=== PATIENT | male | born 1955 | race Caucasian/White ===

== ENCOUNTER 2016-12-22 09:48 | Day surgery (SDC) | payer BC ==
[2016-12-16 10:06] VITALS: BMI 35.9
[~2016-12-22 09:48] MED LIST: LACTATED RINGERS 1,000 ML IV SCH; LIDOCAINE 1% 20 ML VIAL (10MG/ML) FOR IV START INTRADERMA PRN
[2016-12-22 10:17] VITALS: TEMP 97.6
[2016-12-22] MEDS ORDERED: PROPOFOL 10 MG/ML 20 ML VIAL IV ONE (10:56)
[2016-12-22] MEDS ORDERED: MIDAZOLAM 2 MG/2 ML VIAL ONE (10:56)
[2016-12-22] MEDS ORDERED: fentaNYL (PF) 50 MCG/ML 2 ML AMP ONE (10:56)
--- NOTE | 2016-12-22 11:09 | P.GSHP ---
History of Present Illness H&P Date: 12/22/16 Chief Complaint: GERD [employer] 51-year-old male referred from Dr. koehler. Patient has complaints of GERD. He presents today for EGD. He's had issues with epigastric and chest pain related to reflux. Past Medical History Past Medical History: Chest Pain / Angina, CVA/TIA, Hyperlipidemia, Hypertension , Thyroid Disorder Additional Past Medical History / Comment(s): CVA IN 2014: Right sided facial numbness. History of Any Multi-Drug Resistant Organisms: None Reported Past Surgical History: Heart Catheterization With Stent, Orthopedic Surgery, Tonsillectomy Additional Past Surgical History / Comment(s): LT Rotator cuff surgery. COLONOSCOPY. HEMORRHOIDECTOMY Past Anesthesia/Blood Transfusion Reactions: No Reported Reaction Date of Last Stent Placement:: November 2013 Past Psychological History: Depression Smoking Status: Former smoker Past Alcohol Use History: None Reported Additional Past Alcohol Use History / Comment(s): QUIT SMOKING 30 YRS AGO Past Drug Use History: None Reported - Past Family History Mother Family Medical History: Cancer Brother(s) Family Medical History: Cancer Medications and Allergies Home Medications Medication Instructions Recorded Confirmed Type Baclofen [Lioresal] 10 mg PO BID PRN 06/07/14 12/22/16 History Clopidogrel [Plavix] 75 mg PO DAILY 06/07/14 12/22/16 History Furosemide [Lasix] 20 mg PO TID 06/07/14 12/22/16 History Potassium Chloride [Klor-Con 10] 10 meq PO QID 06/07/14 12/22/16 History traMADol HCl [Ultram] 50 mg PO Q6H PRN 06/07/14 12/22/16 History Amitriptyline HCl [Elavil] 10 mg PO HS 06/10/15 12/22/16 History Metoprolol Succinate (ER) [Toprol 25 mg PO QAM 06/10/15 12/22/16 History XL] Atorvastatin Calcium [Lipitor] 20 mg PO HS 12/16/16 12/22/16 History FLUoxetine HCL [PROzac] 20 mg PO HS 12/16/16 12/22/16 History Levothyroxine Sodium [Synthroid] 75 mcg PO DAILY 12/16/16 12/22/16 History carBAMazepine [carBAMazepine ER] 100 mg PO 5XD 01/26/17 02/01/17 History Allergies Allergy/AdvReac Type Severity Reaction Status Date / Time No Known Allergies Allergy Verified 12/16/16 09:57 Surgical - Exam Vital Signs Temp Pulse Resp BP Pulse Ox 97.6 F 58 L 16 122/73 97 12/22/16 10:16 12/22/16 10:16 12/22/16 10:16 12/22/16 10:16 12/22/16 10:16 - General well developed, no distress - Eyes PERRL - ENT normal pinna - Neck no masses - Respiratory normal expansion - Cardiovascular Rhythm: regular - Abdomen Abdomen: soft, non tender Assessment and Plan Plan: GERD. We'll perform EGD.
--- NOTE | 2016-12-22 11:17 | P.OP ---
Date of Procedure: 12/22/16 Preoperative Diagnosis: GERD Postoperative Diagnosis: Mild duodenitis Mild antral gastritis No evidence of hiatal hernia Esophageal biopsy) Procedure(s) Performed: EGD Anesthesia: MAC Surgeon: Cj Omer Condition: stable Disposition: PACU Description of Procedure: The patient's placed on the endoscopy table in the lateral position. He received IV sedation. The gastroscope some placed oropharynx passed in the esophagus and into the stomach. Scope was then placed through the pylorus. The first second portion of duodenum was examined. There is mild inflammation of the duodenum. A biopsies performed. The scope was retroflexed and the remainder of the stomach appeared normal. There is no significant hiatal hernia. The distal esophagus appeared minimally inflamed and a biopsy was performed. The proximal esophagus appeared normal. Withdrawn for patient.
[2016-12-22 11:21] VITALS: RESP 18
[2016-12-22 11:48] VITALS: BP 108/67; PULSE 50
--- NOTE | 2016-12-22 16:58 | NM ---
EXAMINATION TYPE: NM hepatobiliary w CCK DATE OF EXAM: 12/22/2016 4:52 PM COMPARISON: NONE HISTORY: Epigastric abdominal pain per order TECHNIQUE: After the intravenous administration of 5.2 mCi Tc 99m Mebrofenin hepatobiliary scintigrap hy is performed. Immediate images post injection. FINDINGS: There is satisfactory initial accumulation of tracer by the liver. The gallbladder is visualized wit hin 20 minutes. The small bowel activity is noted within 15 minutes. At one hour CCK was administer ed, patient was injected with 2.3 mcg of Kinevac, and gallbladder ejection fraction is calculated at 19 %, diminished from the normal range. Therefore there is no scintigraphic evidence of cystic or co mmon bile duct obstruction to suggest acute cholecystitis. Overall diminished ejection fraction is co nsistent with chronic cholecystitis or gallbladder dyskinesia. IMPRESSION: Ejection fraction is 19%, diminished from the normal range, scintigraphic findings are co nsistent with underlying gallbladder dyskinesia.
== END 2016-12-22 12:11 | disposition home or self-care (01) ==
LOC: ORWHC2ENDO 09:48
PROVIDERS: ATTEND Surgery
DX: K21.0 Gastro-esophageal reflux disease with esophagitis (principal); K29.50 Unspecified chronic gastritis without bleeding; K29.80 Duodenitis without bleeding; I25.10 Atherosclerotic heart disease of native coronary artery without angina pectoris; E07.9 Disorder of thyroid, unspecified; E78.5 Hyperlipidemia, unspecified; I10 Essential (primary) hypertension; F32.9 Major depressive disorder, single episode, unspecified; Z95.5 Presence of coronary angioplasty implant and graft; Z79.02 Long term (current) use of antithrombotics/antiplatelets; Z79.899 Other long term (current) drug therapy; Z87.891 Personal history of nicotine dependence; I69.998 Other sequelae following unspecified cerebrovascular disease
CPT/HCPCS: 88305; 88342; 78227; 43239; A9537; J2250; J2805; J3010; J2704; 99153

== ENCOUNTER 2017-01-12 12:39 | Day surgery (SDC) | payer BC ==
[2017-01-10 15:25] VITALS: BMI 35.9
[~2017-01-12 12:39] MED LIST changes: +DEXAMETHASONE SOD PHOSPHATE 10 MG/ML 1 ML VIAL IV ONE; +HEPARIN SODIUM,PORCINE 5,000 UNIT/ML 1 ML VIAL SQ ONE; -LIDOCAINE 1% 20 ML VIAL (10MG/ML) FOR IV START INTRADERMA PRN; +MIDAZOLAM 2 MG/2 ML VIAL IV PRN; +ONDANSETRON 4 MG/2 ML VIAL IVP ONE; +ceFAZolin 2 GM in SODIUM CHLORIDE 0.9% 100 ML IVPB ONE
[2017-01-12 13:40] VITALS: RESP 16
--- NOTE | 2017-01-12 14:02 | P.GSHP ---
History of Present Illness H&P Date: 01/12/17 Chief Complaint: Right upper quadrant pain This is a 61-year-old male referred from Dr. Meka koehler. Patient rents today for laparoscopic cholestatic. His recent HIDA scan showed a diminished ejection fraction consistent with biliary dyskinesia. - Constitutional Constitutional: Reports as per HPI Past Medical History Past Medical History: Chest Pain / Angina, CVA/TIA, Hyperlipidemia, Hypertension , Thyroid Disorder Additional Past Medical History / Comment(s): CVA IN 2013: Right sided numbness. History of Any Multi-Drug Resistant Organisms: None Reported Past Surgical History: Heart Catheterization With Stent, Orthopedic Surgery, Tonsillectomy Additional Past Surgical History / Comment(s): LT Rotator cuff surgery. NECK SURGERY. PYL. CYST REM. HEMORRHOIDECTOMY Past Anesthesia/Blood Transfusion Reactions: No Reported Reaction Date of Last Stent Placement:: November 2013 Past Psychological History: Depression Smoking Status: Former smoker Past Alcohol Use History: None Reported Additional Past Alcohol Use History / Comment(s): QUIT SMOKING 30 YRS AGO Past Drug Use History: None Reported - Past Family History Mother Family Medical History: Cancer Brother(s) Family Medical History: Cancer Medications and Allergies Home Medications Medication Instructions Recorded Confirmed Type Baclofen [Lioresal] 10 mg PO BID PRN 06/07/14 01/12/17 History Clopidogrel [Plavix] 75 mg PO DAILY 06/07/14 01/12/17 History Furosemide [Lasix] 40 mg PO TID 06/07/14 01/12/17 History Potassium Chloride [Klor-Con 10] 10 meq PO QID 06/07/14 01/12/17 History traMADol HCl [Ultram] 50 mg PO Q6H PRN 06/07/14 01/12/17 History Metoprolol Succinate (ER) [Toprol 25 mg PO HS 06/10/15 01/12/17 History XL] Atorvastatin Calcium [Lipitor] 20 mg PO HS 12/16/16 01/12/17 History FLUoxetine HCL [PROzac] 20 mg PO HS 12/16/16 01/12/17 History Levothyroxine Sodium [Synthroid] 75 mcg PO DAILY 12/16/16 01/12/17 History carBAMazepine [carBAMazepine ER] 100 mg PO 5XD 12/16/16 01/12/17 History Allergies Allergy/AdvReac Type Severity Reaction Status Date / Time No Known Allergies Allergy Verified 01/12/17 13:35 Surgical - Exam Vital Signs Temp Pulse Resp BP Pulse Ox 98.0 F 71 16 139/73 97 01/12/17 13:39 01/12/17 13:39 01/12/17 13:39 01/12/17 13:39 01/12/17 13:39 - General well developed, no distress - Eyes PERRL - ENT normal pinna - Neck no masses - Respiratory normal expansion - Cardiovascular Rhythm: regular - Abdomen Abdomen: soft, non tender Assessment and Plan Plan: Biliary dyskinesia Chronic lysis We'll perform laparoscopic cholecystectomy.
[2017-01-12] MEDS ORDERED: NEOSTIGMINE 1 MG/ML 10 ML VIAL ONE (14:32)
[2017-01-12] MEDS ORDERED: GLYCOPYRROLATE 0.2 MG/ML 2 ML VIAL ONE (14:32)
[2017-01-12] MEDS ORDERED: ROCURONIUM BROMIDE 10 MG/ML 10 ML VIAL IV ONE (14:32)
[2017-01-12] MEDS ORDERED: LIDOCAINE 1% INJ 10MG/ML (20 ML MDV) ONE (14:32)
[2017-01-12] MEDS ORDERED: SUCCINYLCHOLINE CHLORIDE 100 MG/5 ML SYR IV ONE (14:32)
[2017-01-12] MEDS ORDERED: PROPOFOL 10 MG/ML 20 ML VIAL IV ONE (14:32)
[2017-01-12] MEDS ORDERED: MIDAZOLAM 2 MG/2 ML VIAL ONE (14:32)
[2017-01-12] MEDS ORDERED: fentaNYL (PF) 50 MCG/ML 2 ML AMP ONE (14:32)
[2017-01-12] MEDS ORDERED: BUPIVACAIN-EPI 0.25%-1:200,000 30 ML VIAL SQ ONE (14:46)
[2017-01-12] MEDS ORDERED: LACTATED RINGERS 1,000 ML IV ONE (15:13)
--- NOTE | 2017-01-12 15:15 | P.OP ---
Date of Procedure: 01/12/17 Preoperative Diagnosis: Cholecystitis Postoperative Diagnosis: Cholecystitis Procedure(s) Performed: Laparoscopic cholecystectomy Anesthesia: ANISA Surgeon: Cj Omer Estimated Blood Loss (ml): 5 Pathology: other (Gallbladder) Condition: stable Disposition: PACU Description of Procedure: The patient was placed on the operating table. The patient received a general endotracheal tube anesthesia. The patients abdomen was prepped and draped in the usual sterile fashion. Through an infraumbilical stab incision, the fascia of the anterior abdominal wall was grasped with a pair of Kochers and then the Veress needle was placed in the peritoneal cavity. Position of the Veress needle was confirmed with positive drop test. The abdomen was then insufflated. After adequate insufflation, the 10 mm trocar was placed in the peritoneal cavity. Following this the laparoscope was placed in the peritoneal cavity. The patient was placed in the head-up, right side up position and then a 5 mm trocar was placed in the right lateral and right subcostal position under direct visualization. A 8 mm trocar was placed in the epigastric position. The gallbladder was grasped in the fundus and infundibulum. Traction on the gallbladder was placed in the lateral and the cephalad positions. The triangle of Calot was visualized.. The cystic duct was bluntly dissected until the union of the cystic duct and common bile duct was seen. The cystic duct was then divided and sealed with the Harmonic scissors. A PDS Endoloop was then placed throughout the cystic duct stump. The cystic artery divided and sealed with the Harmonic scissors. The gallbladder was then removed from the liver bed using Harmonic scissors. The gallbladder was then extracted through the epigastric port site. Operative field was checked for any bleeding spots and Harmonic scissors was used to coagulate the liver bed. The abdomen was irrigated. The trocars were removed. The skin was closed using interrupted 3-0 Vicryl suture. Dermabond dressing were applied. The patient tolerated the procedure well.
[2017-01-12] MEDS: HYDROmorphone 1 MG/ML 1 ML SYRINGE IVP PRN ×4 (15:40→16:06)
[2017-01-12 15:47] VITALS: TEMP 97.7
[2017-01-12] MEDS ORDERED: HYDROcodone/APAP 7.5-325MG 1 EACH TAB PO ONE (16:53)
[2017-01-12 16:54] VITALS: BP 105/66; PULSE 56
== END 2017-01-12 17:24 | disposition home or self-care (01) ==
LOC: OR 12:39
PROVIDERS: ATTEND Surgery
DX: K81.1 Chronic cholecystitis (principal); I25.119 Atherosclerotic heart disease of native coronary artery with unspecified angina pectoris; I10 Essential (primary) hypertension; E78.5 Hyperlipidemia, unspecified; J45.909 Unspecified asthma, uncomplicated; F32.9 Major depressive disorder, single episode, unspecified; K21.9 Gastro-esophageal reflux disease without esophagitis; E07.9 Disorder of thyroid, unspecified; Z79.02 Long term (current) use of antithrombotics/antiplatelets; Z79.899 Other long term (current) drug therapy; Z87.891 Personal history of nicotine dependence; Z86.73 Personal history of transient ischemic attack (TIA), and cerebral infarction without residual deficits; Z95.5 Presence of coronary angioplasty implant and graft
CPT/HCPCS: 47562; 88304; J2250; J1644; J1100; J2710; J0690; J2405; J2001; J3010; J1170; J0330; J2704

== ENCOUNTER 2017-04-30 15:05 | Emergency (ER) | payer BC ==
[2017-04-30 15:18] VITALS: BP 132/70; PULSE 61; RESP 20; TEMP 99.1
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
== END 2017-04-30 16:18 | disposition home or self-care (01) ==
LOC: EC 15:05
DX: S13.9XXA Sprain of joints and ligaments of unspecified parts of neck, initial encounter (principal); E78.5 Hyperlipidemia, unspecified; I10 Essential (primary) hypertension; F32.9 Major depressive disorder, single episode, unspecified; E07.9 Disorder of thyroid, unspecified; Z87.891 Personal history of nicotine dependence; Z79.899 Other long term (current) drug therapy; Z79.02 Long term (current) use of antithrombotics/antiplatelets; Z86.73 Personal history of transient ischemic attack (TIA), and cerebral infarction without residual deficits; Z86.79 Personal history of other diseases of the circulatory system; Z95.5 Presence of coronary angioplasty implant and graft; V49.40XA Driver injured in collision with unspecified motor vehicles in traffic accident, initial encounter; Y92.410 Unspecified street and highway as the place of occurrence of the external cause
CPT/HCPCS: 99284; 72125; L0120

== ENCOUNTER 2019-01-27 08:59 | Emergency (ER) | payer BC, OTHER ==
[2019-01-27] MEDS ORDERED: SODIUM CHLORIDE 0.9% 1,000 ML IV STA (09:03)
[2019-01-27] MEDS ORDERED: SODIUM CHLORIDE 0.9% 500 ML 500 ML IV STA (09:03)
[2019-01-27 09:16] VITALS: RESP 18
[2019-01-27 09:24] LABS: Glucose,Whole Blood 114 mg/dL (75-99)
--- NOTE | 2019-01-27 09:25 | XR ---
EXAMINATION TYPE: XR chest 1V portable DATE OF EXAM: 01/27/2019 COMPARISON: 12/17/2013 HISTORY: Fall with chest pain. TECHNIQUE: Single frontal view of the chest is obtained. FINDINGS: There is no focal air space opacity, pleural effusion, or pneumothorax seen. The cardiac silhouette size is within normal limits. The osseous structures are intact. Cervical fusion device and mild multilevel degenerative changes of the thoracic spine are noted. IMPRESSION: No acute process.
--- NOTE | 2019-01-27 09:25 | XR ---
EXAMINATION TYPE: XR pelvis AP view DATE OF EXAM: 01/27/2019 CLINICAL HISTORY: Pelvic pain after fall TECHNIQUE: A single AP view of the pelvis is obtained. COMPARISON: None. FINDINGS: Surgical clips are noted within the inferior soft tissues. There is no acute fracture/dislo cation evident in the pelvis. The hip and sacroiliac joints appear symmetric with moderate arthropat hy. The overlying soft tissue appears unremarkable. IMPRESSION: There is no acute fracture or dislocation in the pelvis.
--- NOTE | 2019-01-27 09:26 | ED ---
Fall HPI - General Chief Complaint: Fall Stated Complaint: Fall Time Seen by Provider: 01/27/19 08:59 Source: patient, EMS, RN notes reviewed Mode of arrival: EMS - History of Present Illness Initial Comments: This is a 63-year-old male who states he was walking down steps when he missed a step and fell down 2 steps landing on his left hip area. He denies any head neck or back pain loss of consciousness loss of function to his upper or lower extremities he states he did almost pass out when he try to get up because he had a lot of pain in the left hip area. He was brought in by EMS. Patient is on Plavix. He was considered a priority 2 trauma. I did discuss the case with Dr. Silveira who did call back. He denies any other complaints this time MD Complaint: fall - Related Data Home Medications Medication Instructions Recorded Confirmed Clopidogrel [Plavix] 75 mg PO DAILY 06/07/14 01/27/19 Furosemide [Lasix] 40 mg PO TID 06/07/14 01/27/19 Potassium Chloride [Klor-Con 10] 20 meq PO BID 06/07/14 01/27/19 traMADol HCl [Ultram] 50 mg PO Q6H PRN 06/07/14 01/27/19 Metoprolol Succinate (ER) [Toprol 25 mg PO HS 06/10/15 01/27/19 XL] Atorvastatin Calcium [Lipitor] 20 mg PO HS 12/16/16 01/27/19 FLUoxetine HCL [PROzac] 20 mg PO HS 12/16/16 01/27/19 Montelukast [Singulair] 10 mg PO DAILY 01/27/19 01/27/19 OXcarbazepine [Trileptal] 150 mg PO TID 01/27/19 01/27/19 Spironolactone 50 mg PO DAILY 01/27/19 01/27/19 Allergies Allergy/AdvReac Type Severity Reaction Status Date / Time No Known Allergies Allergy Verified 01/27/19 09:33 Review of Systems ROS Statement: Those systems with pertinent positive or pertinent negative responses have been documented in the HPI. ROS Other: All systems not noted in ROS Statement are negative. Past Medical History Past Medical History: Chest Pain / Angina, CVA/TIA, Hyperlipidemia, Hypertension, Thyroid Disorder Additional Past Medical History / Comment(s): CVA IN 2014: Right sided numbness. History of Any Multi-Drug Resistant Organisms: None Reported Past Surgical History: Heart Catheterization With Stent, Orthopedic Surgery, Tonsillectomy Additional Past Surgical History / Comment(s): LT Rotator cuff surgery. NECK SURGERY. PYL. CYST REM. HEMORRHOIDECTOMY Past Anesthesia/Blood Transfusion Reactions: No Reported Reaction Date of Last Stent Placement:: November 2013 Past Psychological History: Depression Smoking Status: Former smoker Past Alcohol Use History: None Reported Past Drug Use History: None Reported - Past Family History Mother Family Medical History: Cancer Brother(s) Family Medical History: Cancer General Exam - General Exam Comments Initial Comments: This is a well-developed well-nourished awake alert oriented times female he is demonstrating a [place] Coma Scale of 15 Limitations: no limitations General appearance: alert, in no apparent distress Head exam: Present: atraumatic, normocephalic, normal inspection Eye exam: Present: normal appearance, PERRL, EOMI. Absent: scleral icterus, conjunctival injection, periorbital swelling ENT exam: Present: normal exam, mucous membranes moist Neck exam: Present: normal inspection, full ROM, other (The patient's neck was cleared clinically has no tenderness palpation he does have well-healed surgical scar from her previous cervical fusion). Absent: tenderness, meningismus, lymphadenopathy Respiratory exam: Present: normal lung sounds bilaterally. Absent: respiratory distress, wheezes, rales, rhonchi, stridor Cardiovascular Exam: Present: normal rhythm, bradycardia, normal heart sounds. Absent: systolic murmur, diastolic murmur, rubs, gallop, clicks GI/Abdominal exam: Present: soft, normal bowel sounds. Absent: distended, tenderness, guarding, rebound, rigid Rectal exam: Present: deferred Extremities exam: Present: normal inspection, full ROM, tenderness (Tenderness palpation over left external hip and pelvis region no step-off or crepitation no shortening or rotation.), normal capillary refill. Absent: pedal edema, joint swelling, calf tenderness Back exam: Present: normal inspection, full ROM. Absent: tenderness, CVA tenderness (R), CVA tenderness (L), muscle spasm, paraspinal tenderness Neurological exam: Present: alert, oriented X3, CN II-XII intact Psychiatric exam: Present: normal affect, normal mood Skin exam: Present: warm, dry, intact, normal color. Absent: rash Course Vital Signs 01/27/19 09:12 Temperature 98.0 F Pulse Rate 58 L Respiratory 18 Rate Blood Pressure 125/72 O2 Sat by Pulse 98 Oximetry - Reevaluation(s) Reevaluation #1: 01/27/19 11:25 I did reexamine the patient multiple occasions remains awake alert oriented 3 Medical Decision Making - Medical Decision Making I did discuss findings with the patient and his family members were present. Patient remains awake alert oriented 3 with a [place] Coma Scale of 15. CAT scan indicated no evidence of any fractures to his pelvis or hip. Other imaging was unremarkable. Lab work was unremarkable except for evidence of some dehydration. We did discuss this. Patient will be discharged the presentation consistent with a fall with left hip contusion. - Lab Data Result diagrams: 01/27/19 09:24 01/27/19 09:24 Lab Results 01/27/19 01/27/19 01/27/19 Range/Units 09:15 09:24 09:24 WBC 7.3 (3.8-10.6) k/uL RBC 5.10 (4.30-5.90) m/uL Hgb 14.8 (13.0-17.5) gm/dL Hct 44.6 (39.0-53.0) % MCV 87.3 (80.0-100.0) fL MCH 29.0 (25.0-35.0) pg MCHC 33.1 (31.0-37.0) g/dL RDW 13.9 (11.5-15.5) % Plt Count 169 (150-450) k/uL Neutrophils % 64 % Lymphocytes % 25 % Monocytes % 8 % Eosinophils % 1 % Basophils % 1 % Neutrophils # 4.6 (1.3-7.7) k/uL Lymphocytes # 1.8 (1.0-4.8) k/uL Monocytes # 0.6 (0-1.0) k/uL Eosinophils # 0.1 (0-0.7) k/uL Basophils # 0.1 (0-0.2) k/uL PT (9.0-12.0) sec INR (<1.2) APTT (22.0-30.0) sec Sodium 141 (137-145) mmol/L Potassium 3.9 (3.5-5.1) mmol/L Chloride 104 (98-107) mmol/L Carbon Dioxide 28 (22-30) mmol/L Anion Gap 9 mmol/L BUN 30 H (9-20) mg/dL Creatinine 1.09 (0.66-1.25) mg/dL Est GFR (CKD-EPI)AfAm 83 (>60 ml/min/1.73 sqM) Est GFR (CKD-EPI)NonAf 71 (>60 ml/min/1.73 sqM) Glucose 103 H (74-99) mg/dL POC Glucose (mg/dL) 114 H (75-99) mg/dL POC Glu Beamer Hand ID February Calcium 9.6 (8.4-10.2) mg/dL Total Bilirubin 0.7 (0.2-1.3) mg/dL AST 39 (17-59) U/L ALT 71 (21-72) U/L Alkaline Phosphatase 59 (38-126) U/L Troponin I (0.000-0.034) ng/mL Total Protein 7.2 (6.3-8.2) g/dL Albumin 4.5 (3.5-5.0) g/dL Serum Alcohol <10 mg/dL Blood Type Blood Type Recheck Antibody Screen Spec Expiration Date 01/27/19 01/27/19 01/27/19 Range/Units 09:24 09:24 09:24 WBC (3.8-10.6) k/uL RBC (4.30-5.90) m/uL Hgb (13.0-17.5) gm/dL Hct (39.0-53.0) % MCV (80.0-100.0) fL MCH (25.0-35.0) pg MCHC (31.0-37.0) g/dL RDW (11.5-15.5) % Plt Count (150-450) k/uL Neutrophils % % Lymphocytes % % Monocytes % % Eosinophils % % Basophils % % Neutrophils # (1.3-7.7) k/uL Lymphocytes # (1.0-4.8) k/uL Monocytes # (0-1.0) k/uL Eosinophils # (0-0.7) k/uL Basophils # (0-0.2) k/uL PT 10.4 (9.0-12.0) sec INR 1.0 (<1.2) APTT 24.0 (22.0-30.0) sec Sodium (137-145) mmol/L Potassium (3.5-5.1) mmol/L Chloride (98-107) mmol/L Carbon Dioxide (22-30) mmol/L Anion Gap mmol/L BUN (9-20) mg/dL Creatinine (0.66-1.25) mg/dL Est GFR (CKD-EPI)AfAm (>60 ml/min/1.73 sqM) Est GFR (CKD-EPI)NonAf (>60 ml/min/1.73 sqM) Glucose (74-99) mg/dL POC Glucose (mg/dL) (75-99) mg/dL POC Glu Beamer Hand ID Calcium (8.4-10.2) mg/dL Total Bilirubin (0.2-1.3) mg/dL AST (17-59) U/L ALT (21-72) U/L Alkaline Phosphatase (38-126) U/L Troponin I <0.012 (0.000-0.034) ng/mL Total Protein (6.3-8.2) g/dL Albumin (3.5-5.0) g/dL Serum Alcohol mg/dL Blood Type A Positive Blood Type Recheck CABO Indicated Antibody Screen NEGATIVE Spec Expiration Date 01/30/20192323 - EKG Data -: EKG Interpreted by Id EKG shows normal: sinus rhythm (Sinus bradycardia rate of 49. Interval 164 QRS duration 96 QT since QTC 4:30/[address]-T wave changes.) Critical Care Time Critical Care Time: Yes Critical Care Time: 31 minutes of critical care time which includes initial presentation with history physical labs x-rays reevaluation patient several occasions. Discussed with the trauma surgeon as well as the activation of a level II trauma. Review of all imaging. Discussion with multiple family members. Documentation the above Disposition Clinical Impression: Fall, Contusion of left hip, Dehydration Disposition: HOME SELF-CARE Condition: Good Instructions (If sedation given, give patient instructions): Fall Prevention for Older Adults (ED), Dehydration (ED), Hip Contusion (ED) Additional Instructions: I sent 24-48 hours to the affected area, weight-bear as tolerated, he may use a cane if needed. He may use your home pain medication is needed Is patient prescribed a controlled substance at d/c from ED?: No Referrals: Meka Angel DO [Primary Care Provider] - 1-2 days
[2019-01-27] MEDS ORDERED: fentaNYL (PF) 50 MCG/ML 2 ML AMP IV STA (09:27)
[2019-01-27 09:54] LABS: Basophils # (A) 0.1 k/uL (0-0.2); Basophils % (A) 1 %; Eosinophils # (A) 0.1 k/uL (0-0.7); Eosinophils % (A) 1 %; HCT 44.6 % (39.0-53.0); HGB 14.8 gm/dL (13.0-17.5); Lymphocytes # (A) 1.8 k/uL (1.0-4.8); Lymphocytes % (A) 25 %; MCHC 33.1 g/dL (31.0-37.0); MCV 87.3 fL (80.0-100.0); Mean Platelet Volume 6.3; Monocytes # (A) 0.6 k/uL (0-1.0); Monocytes % (A) 8 %; Neutrophils # (A) 4.6 k/uL (1.3-7.7); Neutrophils % (A) 64 %; Platelet Count 169 k/uL (150-450); RDW 13.9 % (11.5-15.5); WBC 7.3 k/uL (3.8-10.6)
[2019-01-27 10:05] LABS: ALT 71 U/L (21-72); AST 39 U/L (17-59); Albumin 4.5 g/dL (3.5-5.0); Alcohol <10 mg/dL; Alkaline Phosphatase 59 U/L (38-126); Anion Gap 9 mmol/L; Blood Urea Nitrogen 30 mg/dL (9-20); Calcium 9.6 mg/dL (8.4-10.2); Carbon Dioxide 28 mmol/L (22-30); Chloride 104 mmol/L (98-107); Glucose 103 mg/dL (74-99); Potassium 3.9 mmol/L (3.5-5.1); Sodium 141 mmol/L (137-145); Total Bilirubin 0.7 mg/dL (0.2-1.3); Total Protein 7.2 g/dL (6.3-8.2)
[2019-01-27 10:21] LABS: Prothrombin Time 10.4 sec (9.0-12.0)
--- NOTE | 2019-01-27 11:02 | CT ---
EXAMINATION TYPE: CT pelvis wo con, CT hip LT wo con DATE OF EXAM: 01/27/2019 COMPARISON: Pelvic radiograph of the same date HISTORY: Left hip and pelvic pain post fall down stairs. CT DLP: 428.1 mGycm Automated exposure control for dose reduction was used. TECHNIQUE: Standard unenhanced CT of the pelvis and left hip were obtained. FINDINGS: Is no evidence of acute fracture or dislocation of the left hip. Moderate femoral acetabular arthropa thy is seen, overall symmetrically to the right with subchondral cysts and small marginal osteophytes with joint space narrowing. Visualized osseous structures of the pelvis are intact. No subcutaneous hematoma. No joint effusion. Sacroiliac joints are overall symmetric. No dilated large or small bowel in the pelvis. Appendix is partially visualized and within normal johns its. No adenopathy that is pathologic. Heterogeneity of the prostate gland is noted. Urinary bladder is incompletely distended. Minimal atherosclerosis of the abdominal aortic branches. Surgical clip wi thin the left inguinal canal is incidentally noted. IMPRESSION: NO ACUTE FRACTURE OR DISLOCATION OF THE LEFT HIP OR PELVIS. MODERATE BILATERAL FEMORAL ACETABULAR ART HROPATHY. NO SUBCUTANEOUS HEMATOMA.
[2019-01-27 11:42] VITALS: BP 116/52; PULSE 52; TEMP 98.3
== END 2019-01-27 11:42 | disposition home or self-care (01) ==
LOC: EC 08:59
DX: S70.02XA Contusion of left hip, initial encounter (principal); E86.0 Dehydration; E78.5 Hyperlipidemia, unspecified; I10 Essential (primary) hypertension; F32.9 Major depressive disorder, single episode, unspecified; Z95.5 Presence of coronary angioplasty implant and graft; Z86.73 Personal history of transient ischemic attack (TIA), and cerebral infarction without residual deficits; Z87.891 Personal history of nicotine dependence; Z79.02 Long term (current) use of antithrombotics/antiplatelets; Z79.899 Other long term (current) drug therapy; W10.9XXA Fall (on) (from) unspecified stairs and steps, initial encounter; Y93.01 Activity, walking, marching and hiking
CPT/HCPCS: 99285; 96374; 96361 ×2; 36415; 93005; 86900; 86901; 80053; 84484; 85025; 85610; 85730; 86850; 80320; 72170; 71045; 72192; 73700; J3010

== ENCOUNTER 2019-12-21 20:41 | Emergency (ER) | payer MEDICARE, BC ==
[2019-12-21] MEDS ORDERED: SODIUM CHLORIDE 0.9% 1,000 ML IV STA (21:14)
--- NOTE | 2019-12-21 21:15 | ED ---
Weakness HPI - General Chief complaint: Upper Respiratory Infection Stated complaint: Cough,SOB Time Seen by Provider: 12/21/19 20:59 Source: patient, RN notes reviewed, old records reviewed Mode of arrival: ambulatory Limitations: no limitations - History of Present Illness Initial comments: T this is a 64-year-old male DF for evaluation not feeling well cough congestion upper respiratory type symptoms. Some dehydration decreased appetite lightheade dness with change of position no chest pain no current shortness of breath no diaphoresis no fevers and chills recent change in medications recent travels or sick contacts patient just generally feels weak, feels like he needs of breath. No recent change in medications or hospitalizations MD Complaint: generalized weakness, lack of energy -: days(s) Location: generalized Severity scale (1-10): 2 Consistency: constant Improves with: none Worsens with: none Context: recent illness, history of similar Associated Symptoms: denies other symptoms - Related Data Home Medications Medication Instructions Recorded Confirmed Clopidogrel [Plavix] 75 mg PO DAILY 06/07/14 01/27/19 Furosemide [Lasix] 40 mg PO TID 06/07/14 01/27/19 Potassium Chloride [Klor-Con 10] 20 meq PO BID 06/07/14 01/27/19 traMADol HCl [Ultram] 50 mg PO Q6H PRN 06/07/14 01/27/19 Metoprolol Succinate (ER) [Toprol 25 mg PO HS 06/10/15 01/27/19 XL] Atorvastatin Calcium [Lipitor] 20 mg PO HS 12/16/16 01/27/19 FLUoxetine HCL [PROzac] 20 mg PO HS 12/16/16 01/27/19 Montelukast [Singulair] 10 mg PO DAILY 01/27/19 01/27/19 OXcarbazepine [Trileptal] 150 mg PO TID 01/27/19 01/27/19 Spironolactone 50 mg PO DAILY 01/27/19 01/27/19 Allergies Allergy/AdvReac Type Severity Reaction Status Date / Time No Known Allergies Allergy Verified 01/27/19 09:33 Review of Systems ROS Statement: Those systems with pertinent positive or pertinent negative responses have been documented in the HPI. ROS Other: All systems not noted in ROS Statement are negative. Past Medical History Past Medical History: Chest Pain / Angina, CVA/TIA, Hyperlipidemia, Hypertension, Thyroid Disorder Additional Past Medical History / Comment(s): CVA IN 2014: Right sided numbness. History of Any Multi-Drug Resistant Organisms: None Reported Past Surgical History: Heart Catheterization With Stent, Orthopedic Surgery, Tonsillectomy Additional Past Surgical History / Comment(s): LT Rotator cuff surgery. NECK SURGERY. PYL. CYST REM. HEMORRHOIDECTOMY Past Anesthesia/Blood Transfusion Reactions: No Reported Reaction Date of Last Stent Placement:: November 2013 Past Psychological History: Depression Smoking Status: Former smoker Past Alcohol Use History: None Reported Past Drug Use History: None Reported - Past Family History Mother Family Medical History: Cancer Brother(s) Family Medical History: Cancer General Exam Limitations: no limitations General appearance: alert, in no apparent distress Head exam: Present: atraumatic, normocephalic, normal inspection Eye exam: Present: normal appearance, PERRL, EOMI. Absent: scleral icterus, conjunctival injection, periorbital swelling ENT exam: Present: normal exam, mucous membranes moist Neck exam: Present: normal inspection. Absent: tenderness, meningismus, lymphadenopathy Respiratory exam: Present: normal lung sounds bilaterally. Absent: respiratory distress, wheezes, rales, rhonchi, stridor Cardiovascular Exam: Present: regular rate, normal rhythm, normal heart sounds. Absent: systolic murmur, diastolic murmur, rubs, gallop, clicks GI/Abdominal exam: Present: soft, normal bowel sounds. Absent: distended, tenderness, guarding, rebound, rigid Extremities exam: Present: normal inspection, full ROM, normal capillary refill. Absent: tenderness, pedal edema, joint swelling, calf tenderness Back exam: Present: normal inspection Neurological exam: Present: alert, oriented X3, CN II-XII intact Psychiatric exam: Present: normal affect, normal mood Skin exam: Present: warm, dry, intact, normal color. Absent: rash Course Vital Signs 12/21/19 12/21/19 12/21/19 20:58 21:30 22:00 Temperature 97.5 F L Pulse Rate 54 L 51 L 52 L Respiratory 18 16 16 Rate Blood Pressure 114/63 110/67 117/69 O2 Sat by Pulse 99 95 93 L Oximetry 12/21/19 12/21/19 22:30 23:00 Temperature Pulse Rate 51 L 49 L Respiratory 17 14 Rate Blood Pressure 112/63 111/69 O2 Sat by Pulse 94 L 96 Oximetry - Reevaluation(s) Reevaluation #1: 12/21/19 23:40 Medical records reviewed Reevaluation #2: 12/21/19 23:40 The patient states his heart is always lower Reevaluation #3: 12/21/19 23:40 he feels improved. Discharged home, concern for pneumonia informed her normal chest x-ray EKG Findings - EKG Comments: EKG Findings:: EKG shows sinus bradycardia rate of 49, MI 156, QRS 96, QTc 381 Medical Decision Making - Medical Decision Making 64 male to the ER for evaluation of pressure type infections cough congestion weakness. Mildly increased symptoms weakness and fatigue testing here in the ER is otherwise negative. Patient feels improved prefer discharged - Lab Data Result diagrams: 12/21/19 21:35 12/21/19 21:35 Lab Results 12/21/19 12/21/19 12/21/19 Range/Units 21:35 21:35 21:35 WBC 14.1 H (3.8-10.6) k/uL RBC 4.75 (4.30-5.90) m/uL Hgb 13.6 (13.0-17.5) gm/dL Hct 41.3 (39.0-53.0) % MCV 87.0 (80.0-100.0) fL MCH 28.6 (25.0-35.0) pg MCHC 32.8 (31.0-37.0) g/dL RDW 13.2 (11.5-15.5) % Plt Count 226 (150-450) k/uL Neutrophils % 82 % Lymphocytes % 11 % Monocytes % 6 % Eosinophils % 1 % Basophils % 1 % Neutrophils # 11.5 H (1.3-7.7) k/uL Lymphocytes # 1.5 (1.0-4.8) k/uL Monocytes # 0.8 (0-1.0) k/uL Eosinophils # 0.1 (0-0.7) k/uL Basophils # 0.1 (0-0.2) k/uL PT (9.0-12.0) sec INR (<1.2) APTT (22.0-30.0) sec D-Dimer (<0.60) mg/L FEU Sodium 139 (137-145) mmol/L Potassium 3.8 (3.5-5.1) mmol/L Chloride 102 (98-107) mmol/L Carbon Dioxide 28 (22-30) mmol/L Anion Gap 9 mmol/L BUN 35 H (9-20) mg/dL Creatinine 1.19 (0.66-1.25) mg/dL Est GFR (CKD-EPI)AfAm 74 (>60 ml/min/1.73 sqM) Est GFR (CKD-EPI)NonAf 64 (>60 ml/min/1.73 sqM) Glucose 119 H (74-99) mg/dL Calcium 9.2 (8.4-10.2) mg/dL Phosphorus 4.2 (2.5-4.5) mg/dL Magnesium 2.0 (1.6-2.3) mg/dL Total Bilirubin 0.4 (0.2-1.3) mg/dL AST 20 (17-59) U/L ALT 22 (4-49) U/L Alkaline Phosphatase 48 (38-126) U/L Creatine Kinase 68 (55-170) U/L Troponin I (0.000-0.034) ng/mL NT-Pro-B Natriuret Pep 130 pg/mL Total Protein 6.7 (6.3-8.2) g/dL Albumin 3.9 (3.5-5.0) g/dL 12/21/19 12/21/19 Range/Units 21:35 21:35 WBC (3.8-10.6) k/uL RBC (4.30-5.90) m/uL Hgb (13.0-17.5) gm/dL Hct (39.0-53.0) % MCV (80.0-100.0) fL MCH (25.0-35.0) pg MCHC (31.0-37.0) g/dL RDW (11.5-15.5) % Plt Count (150-450) k/uL Neutrophils % % Lymphocytes % % Monocytes % % Eosinophils % % Basophils % % Neutrophils # (1.3-7.7) k/uL Lymphocytes # (1.0-4.8) k/uL Monocytes # (0-1.0) k/uL Eosinophils # (0-0.7) k/uL Basophils # (0-0.2) k/uL PT 9.8 (9.0-12.0) sec INR 0.9 (<1.2) APTT 22.8 (22.0-30.0) sec D-Dimer 0.33 (<0.60) mg/L FEU Sodium (137-145) mmol/L Potassium (3.5-5.1) mmol/L Chloride (98-107) mmol/L Carbon Dioxide (22-30) mmol/L Anion Gap mmol/L BUN (9-20) mg/dL Creatinine (0.66-1.25) mg/dL Est GFR (CKD-EPI)AfAm (>60 ml/min/1.73 sqM) Est GFR (CKD-EPI)NonAf (>60 ml/min/1.73 sqM) Glucose (74-99) mg/dL Calcium (8.4-10.2) mg/dL Phosphorus (2.5-4.5) mg/dL Magnesium (1.6-2.3) mg/dL Total Bilirubin (0.2-1.3) mg/dL AST (17-59) U/L ALT (4-49) U/L Alkaline Phosphatase (38-126) U/L Creatine Kinase (55-170) U/L Troponin I <0.012 (0.000-0.034) ng/mL NT-Pro-B Natriuret Pep pg/mL Total Protein (6.3-8.2) g/dL Albumin (3.5-5.0) g/dL - Radiology Data Radiology results: report reviewed (Chest x-ray is negative for acute disease), image reviewed Disposition Clinical Impression: Bronchitis, Acute upper respiratory infection Disposition: HOME SELF-CARE Condition: Good Instructions (If sedation given, give patient instructions): Upper Respiratory Infection (ED) Is patient prescribed a controlled substance at d/c from ED?: No Referrals: Meka Angel DO [Primary Care Provider] - 1-2 days
[2019-12-21 21:46] LABS: Basophils # (A) 0.1 k/uL (0-0.2); Basophils % (A) 1 %; Eosinophils # (A) 0.1 k/uL (0-0.7); Eosinophils % (A) 1 %; HCT 41.3 % (39.0-53.0); HGB 13.6 gm/dL (13.0-17.5); Lymphocytes # (A) 1.5 k/uL (1.0-4.8); Lymphocytes % (A) 11 %; MCH 28.6 pg (25.0-35.0); MCHC 32.8 g/dL (31.0-37.0); Mean Platelet Volume 7.4; Monocytes # (A) 0.8 k/uL (0-1.0); Monocytes % (A) 6 %; Neutrophils # (A) 11.5 k/uL (1.3-7.7); Neutrophils % (A) 82 %; Platelet Count 226 k/uL (150-450); RBC 4.75 m/uL (4.30-5.90); RDW 13.2 % (11.5-15.5); WBC 14.1 k/uL (3.8-10.6)
[2019-12-21 21:55] LABS: Albumin 3.9 g/dL (3.5-5.0); Calcium 9.2 mg/dL (8.4-10.2); Phosphorus 4.2 mg/dL (2.5-4.5); Potassium 3.8 mmol/L (3.5-5.1); Total Bilirubin 0.4 mg/dL (0.2-1.3); Total Protein 6.7 g/dL (6.3-8.2)
[2019-12-21 22:00] LABS: D-Dimer 0.33 mg/L FEU (<0.60); INR 0.9 (<1.2); Partial Thromboplastin Time 22.8 sec (22.0-30.0); Prothrombin Time 9.8 sec (9.0-12.0)
--- NOTE | 2019-12-21 22:06 | XR ---
EXAMINATION TYPE: XR chest 2V DATE OF EXAM: 12/21/2019 COMPARISON: 01/27/2019 HISTORY: Weakness TECHNIQUE: FINDINGS: Heart is normal. Lungs are clear. Diaphragm is normal. Bony thorax is intact. There are urvashi st leads. IMPRESSION: No active cardiopulmonary disease. No change.
[2019-12-21 23:11] VITALS: BP 111/69; PULSE 49; RESP 14
[2019-12-21 23:43] VITALS: TEMP 98.1
== END 2019-12-21 23:43 | disposition home or self-care (01) ==
LOC: EC 20:41
DX: J40 Bronchitis, not specified as acute or chronic (principal); J06.9 Acute upper respiratory infection, unspecified; R53.1 Weakness; R53.83 Other fatigue; E78.5 Hyperlipidemia, unspecified; I10 Essential (primary) hypertension; I25.2 Old myocardial infarction; E07.9 Disorder of thyroid, unspecified; F32.9 Major depressive disorder, single episode, unspecified; Z79.02 Long term (current) use of antithrombotics/antiplatelets; Z79.899 Other long term (current) drug therapy; Z87.891 Personal history of nicotine dependence; Z95.5 Presence of coronary angioplasty implant and graft; Z86.73 Personal history of transient ischemic attack (TIA), and cerebral infarction without residual deficits
CPT/HCPCS: 36415; 71046; 80053; 82550; 83735; 83880; 84100; 84484; 85025; 85379; 85610; 85730; 93005; 96374; 96375; 99285

== ENCOUNTER 2021-05-20 01:11 | Emergency (ER) | payer MEDICARE, BC ==
[2021-05-20 01:21] VITALS: BP 116/78; PULSE 75; RESP 18; TEMP 97.8
--- NOTE | 2021-05-20 01:37 | ED ---
Fall HPI - General Chief Complaint: Fall Stated Complaint: Fall Time Seen by Provider: 05/20/21 01:22 Source: patient, RN notes reviewed Mode of arrival: wheelchair Limitations: no limitations - History of Present Illness Initial Comments: 65-year-old male presents emergency from chief complaint of a head injury. Patient states he was placed on Ambien states that this first dose tonight states that he got out of the bathroom as he takes Lasix and states that he was unsteady, stumbled forward striking his head on the TV breaking the TV no laceration. He states he's had prior right shoulder surgery in March which is been healing up is in a sling and he states he was unable to catch himself and this is why he fell into the TV states he did not fall to the ground did not lose conscious denies any neck pain is normal headache no blurred vision no focal weakness. Patient states he is on Plavix currently. - Related Data Home Medications Medication Instructions Recorded Confirmed Clopidogrel [Plavix] 75 mg PO DAILY 06/07/14 01/27/19 Furosemide [Lasix] 40 mg PO TID 06/07/14 01/27/19 Potassium Chloride [Klor-Con 10] 20 meq PO BID 06/07/14 01/27/19 traMADol HCl [Ultram] 50 mg PO Q6H PRN 06/07/14 01/27/19 Metoprolol Succinate (ER) [Toprol 25 mg PO HS 06/10/15 01/27/19 XL] Atorvastatin Calcium [Lipitor] 20 mg PO HS 12/16/16 01/27/19 FLUoxetine HCL [PROzac] 20 mg PO HS 12/16/16 01/27/19 Montelukast [Singulair] 10 mg PO DAILY 01/27/19 01/27/19 OXcarbazepine [Trileptal] 150 mg PO TID 01/27/19 01/27/19 Spironolactone 50 mg PO DAILY 01/27/19 01/27/19 Allergies Allergy/AdvReac Type Severity Reaction Status Date / Time No Known Allergies Allergy Verified 05/20/21 01:21 Review of Systems ROS Statement: Those systems with pertinent positive or pertinent negative responses have been documented in the HPI. ROS Other: All systems not noted in ROS Statement are negative. Past Medical History Past Medical History: Chest Pain / Angina, CVA/TIA, Hyperlipidemia, Hypertension, Thyroid Disorder Additional Past Medical History / Comment(s): CVA IN 2014: Right sided numbness. History of Any Multi-Drug Resistant Organisms: None Reported Past Surgical History: Heart Catheterization With Stent, Orthopedic Surgery, Tonsillectomy Additional Past Surgical History / Comment(s): LT Rotator cuff surgery. NECK SURGERY. PYL. CYST REM. HEMORRHOIDECTOMY Past Anesthesia/Blood Transfusion Reactions: No Reported Reaction Date of Last Stent Placement:: November 2013 Past Psychological History: Depression Smoking Status: Never smoker Past Alcohol Use History: None Reported Past Drug Use History: None Reported - Past Family History Mother Family Medical History: Cancer Brother(s) Family Medical History: Cancer General Exam Limitations: no limitations General appearance: alert, in no apparent distress Head exam: Present: atraumatic, normocephalic, normal inspection Eye exam: Present: normal appearance, PERRL, EOMI. Absent: scleral icterus, conjunctival injection, periorbital swelling ENT exam: Present: normal exam, normal oropharynx, mucous membranes moist Neck exam: Present: normal inspection, full ROM. Absent: tenderness, meningismus, lymphadenopathy Respiratory exam: Present: normal lung sounds bilaterally. Absent: respiratory distress, wheezes, rales, rhonchi, stridor Cardiovascular Exam: Present: regular rate, normal rhythm, normal heart sounds. Absent: systolic murmur, diastolic murmur, rubs, gallop, clicks Neurological exam: Present: alert, oriented X3, CN II-XII intact, reflexes normal. Absent: motor sensory deficit Skin exam: Present: warm, dry, intact, normal color. Absent: rash Course Vital Signs 05/20/21 01:16 Temperature 97.8 F Pulse Rate 75 Respiratory 18 Rate Blood Pressure 116/78 O2 Sat by Pulse 97 Oximetry Medical Decision Making - Medical Decision Making CT of the brain is unremarkable. Patient's neurological intact. Patiently discharges in stable condition return parameters were discussed. Disposition Clinical Impression: Head injury Disposition: HOME SELF-CARE Condition: Stable Instructions (If sedation given, give patient instructions): Head Injury (ED) Additional Instructions: Please return to the Emergency Department if symptoms worsen or any other concerns. Is patient prescribed a controlled substance at d/c from ED?: No Referrals: Meka Angel DO [Primary Care Provider] - 1-2 days Time of Disposition: 02:05
--- NOTE | 2021-05-20 01:54 | CT ---
EXAMINATION TYPE: CT brain wo con DATE OF EXAM: 05/20/2021 COMPARISON: 06/07/2014 HISTORY: Fall CT DLP: 1153.4 mGycm Automated exposure control for dose reduction was used. There is no mass effect nor midline shift. Ventricles have normal size. There is no sign of intracran ial hemorrhage. The calvarium is intact. There is normal aeration of the mastoid sinuses. IMPRESSION: Negative unenhanced head CT scan. No change.
== END 2021-05-20 02:10 | disposition home or self-care (01) ==
LOC: EC 01:11
DX: S09.90XA Unspecified injury of head, initial encounter (principal); I10 Essential (primary) hypertension; E78.5 Hyperlipidemia, unspecified; Z86.73 Personal history of transient ischemic attack (TIA), and cerebral infarction without residual deficits; W01.190A Fall on same level from slipping, tripping and stumbling with subsequent striking against furniture, initial encounter
CPT/HCPCS: 70450; 99284

== ENCOUNTER → 2022-09-02 | Day surgery (SDC) | payer MEDICARE, BC ==
[~2022-09-02] MED LIST changes: -DEXAMETHASONE SOD PHOSPHATE 10 MG/ML 1 ML VIAL IV ONE; -HEPARIN SODIUM,PORCINE 5,000 UNIT/ML 1 ML VIAL SQ ONE; +LIDOCAINE 2% INJ 20 MG/ML (2 ML VIAL) ONE; -MIDAZOLAM 2 MG/2 ML VIAL IV PRN; -ONDANSETRON 4 MG/2 ML VIAL IVP ONE; +PROPOFOL 10 MG/ML 20 ML VIAL IV ONE; -ceFAZolin 2 GM in SODIUM CHLORIDE 0.9% 100 ML IVPB ONE
--- NOTE | 2022-09-02 07:41 | P.GSHP ---
History of Present Illness H&P Date: 09/02/22 CHIEF COMPLAINT: GERD with dysphagia and colon screen HISTORY OF PRESENT ILLNESS: The patient is a 67-year-old male who presents with gastroesophageal reflux disease with dysphagia and need for colon screen. Upper and lower endoscopy were offered for further evaluation and management. PAST MEDICAL HISTORY: Please see list. PAST SURGICAL HISTORY: Please see list. MEDICATIONS: Please see list. ALLERGIES: Please see list. SOCIAL HISTORY: No illicit drug use FAMILY HISTORY: No reports of Crohn disease or ulcerative colitis. REVIEW OF ORGAN SYSTEMS: CONSTITUTIONAL: No reports of fevers or chills. GI: Denies any blood in stools or constipation. PHYSICAL EXAM: VITAL SIGNS: Stable GENERAL: Well-developed pleasant in no acute distress. HEENT: No scleral icterus. Extraocular movements grossly intact. Moist buccal mucosa. NECK: Supple without lymphadenopathy. CHEST: Unlabored respirations. Equal bilateral excursions. CARDIOVASCULAR: Regular rate and rhythm. Distal 2+ pulses. ABDOMEN: Soft, nondistended. MUSCULOSKELETAL: No clubbing, cyanosis, or edema. ASSESSMENT: 1. Gastroesophageal reflux disease with dysphagia 2. Colon screen. PLAN: 1. Recommend proceeding with an upper with dilation and lower endoscopy Past Medical History Past Medical History: Chest Pain / Angina, CVA/TIA, Hyperlipidemia, Hypertension, Thyroid Disorder Additional Past Medical History / Comment(s): CVA IN 2013: Right sided numbness. History of Any Multi-Drug Resistant Organisms: None Reported Past Surgical History: Cholecystectomy, Heart Catheterization With Stent, Orthopedic Surgery, Tonsillectomy Additional Past Surgical History / Comment(s): LT & Rt Rotator cuff surgery. NECK SURGERY. Pilonidal cyst removal. HEMORRHOIDECTOMY Past Anesthesia/Blood Transfusion Reactions: No Reported Reaction Date of Last Stent Placement:: November 2013 Smoking Status: Never smoker - Past Family History Mother Family Medical History: Cancer Brother(s) Family Medical History: Cancer Medications and Allergies Home Medications Medication Instructions Recorded Confirmed Type Clopidogrel [Plavix] 75 mg PO DAILY 06/07/14 08/31/22 History Furosemide [Lasix] 40 mg PO TID 06/07/14 08/31/22 History Potassium Chloride [Klor-Con 10] 20 meq PO BID 06/07/14 08/31/22 History traMADol HCl [Ultram] 50 mg PO Q6H PRN 06/07/14 08/31/22 History Metoprolol Succinate (ER) [Toprol 25 mg PO HS 06/10/15 08/31/22 History XL] Atorvastatin Calcium [Lipitor] 20 mg PO HS 12/16/16 08/31/22 History FLUoxetine HCL [PROzac] 20 mg PO HS 12/16/16 08/31/22 History OXcarbazepine [Trileptal] 150 mg PO TID 01/27/19 08/31/22 History Spironolactone 50 mg PO DAILY 01/27/19 08/31/22 History Levothyroxine Sodium [Synthroid] 25 mcg PO DAILY 08/31/22 08/31/22 History metFORMIN HCL 500 mg PO DAILY 08/31/22 08/31/22 History Allergies Allergy/AdvReac Type Severity Reaction Status Date / Time No Known Allergies Allergy Verified 05/20/21 01:21
[2022-09-02 09:29] VITALS: TEMP 96.3
[2022-09-02 09:44] LABS: Glucose,Whole Blood 126 mg/dL (70-110)
[2022-09-02 10:56] VITALS: PULSE 56; RESP 16
[2022-09-02 11:11] VITALS: BP 126/82
--- NOTE | 2022-09-02 11:29 | P.PCN ---
Date of Procedure: 09/02/22 Description of Procedure: PREOPERATIVE DIAGNOSIS: Colonoscopy screening POSTOPERATIVE DIAGNOSIS: Tubular adenoma rectum Pandiverticulosis Sigmoid diverticulosis Internal hemorrhoids, grade 2 OPERATION: Colonoscopy to the ileocecal valve and appendiceal orifice, cecum Colonoscopy with hot snare polypectomy Colonoscopy with cold forceps biopsy SURGEON: Annalee Alvarenga MD. ANESTHESIA: MAC. INDICATIONS: The patient is an 67-year-old male who presents for colonoscopy screening. Benefits and risks were described and informed consent was obtained. DESCRIPTION OF PROCEDURE: The patient had undergone Sutab prep. The patient had been brought into the operating room and laid in the left lateral decubitus position. After adequate intravenous sedation, the rectum was examined with 2% lidocaine jelly. The prostate was unremarkable. External hemorrhoids were encountered. The rectal tone was within normal limits. No lesions were palpated in the rectal vault. An Olympus colonoscope was advanced until the cecum, ileocecal valve and appendiceal orifice were clearly viewed. The prep was excellent. Sigmoid diverticulosis was encountered. Colonic polyps were found and removed. No evidence of focal colitis was found. Retroflexion of the scope demonstrated grade 2 internal hemorrhoids without active bleeding or inflammation. The colon was desufflated. The patient had tolerated the procedure well. Withdrawal time was over 6 minutes. FINDINGS: Aronchick preparation quality scale 1 (1-5) Internal hemorrhoids, grade 3 External hemorrhoids, grade 3. No arteriovenous malformations. Sigmoid diverticulosis Pandiverticulosis Removal of 2 polyps: - Cold forceps biopsy at 15 cm from the anal verge 2, 4 to 6 mm polyp, sigmoid colon No focal colitis. RECOMMENDATIONS: Repeat colonoscopy in 2 years, 2023 Plan - Discharge Summary Discharge Rx Participant: No New Discharge Prescriptions: Continue traMADol HCl [Ultram] 50 mg PO Q6H PRN PRN Reason: Pain Potassium Chloride [Klor-Con 10] 20 meq PO BID Furosemide [Lasix] 40 mg PO TID Clopidogrel [Plavix] 75 mg PO DAILY Metoprolol Succinate (ER) [Toprol XL] 25 mg PO HS FLUoxetine HCL [PROzac] 20 mg PO HS Atorvastatin Calcium [Lipitor] 20 mg PO HS Spironolactone 50 mg PO DAILY OXcarbazepine [Trileptal] 150 mg PO TID Levothyroxine Sodium [Synthroid] 25 mcg PO DAILY metFORMIN HCL 500 mg PO DAILY Discharge Medication List Clopidogrel [Plavix] 75 mg PO DAILY 06/07/14 [History] Furosemide [Lasix] 40 mg PO TID 06/07/14 [History] Potassium Chloride [Klor-Con 10] 20 meq PO BID 06/07/14 [History] traMADol HCl [Ultram] 50 mg PO Q6H PRN 06/07/14 [History] Metoprolol Succinate (ER) [Toprol XL] 25 mg PO HS 06/10/15 [History] Atorvastatin Calcium [Lipitor] 20 mg PO HS 12/16/16 [History] FLUoxetine HCL [PROzac] 20 mg PO HS 12/16/16 [History] OXcarbazepine [Trileptal] 150 mg PO TID 01/27/19 [History] Spironolactone 50 mg PO DAILY 01/27/19 [History] Levothyroxine Sodium [Synthroid] 25 mcg PO DAILY 08/31/22 [History] metFORMIN HCL 500 mg PO DAILY 08/31/22 [History] Follow up Appointment(s)/Referral(s): Annalee Alvarenga MD [STAFF PHYSICIAN] - 09/15/22 Patient Instructions/Handouts: *[facility] - (Anesthesia) Endoscopy Discharge Instructions, Hemorrhoids (DC), Diverticulosis (GEN), Colorectal Polyps (GEN), Diverticulosis Diet (GEN), Colonoscopy (DC), Upper Endoscopy (DC), Esophageal Dilation (DC) Activity/Diet/Wound Care/Special Instructions: Repeat colonoscopy in 2 years, 2023 Discharge Disposition: HOME SELF-CARE
--- NOTE | 2022-09-02 11:32 | P.PCN ---
Date of Procedure: 09/02/22 Description of Procedure: PREOPERATIVE DIAGNOSIS: Gastroesophageal reflux disease Dysphagia POSTOPERATIVE DIAGNOSIS: Upper esophageal stenosis Gastroesophageal reflux disease OPERATION: Esophagogastroduodenoscopy with rigid dilator over the guidewire 57 Fr with dilation Esophagogastroduodenoscopy with cold forceps biopsies stomach/antrum and duodenal SURGEON: Annalee Alvarenga MD ANESTHESIA: MAC. INDICATIONS: The patient is a 67-year-old male who presents with a history of gastroesophageal reflux disease with dysphagia. Benefits and risks of the procedure were described. Informed consent was obtained. DESCRIPTION: The patient was brought into the endoscopy suite and laid in the left lateral decubitus position. After a timeout was confirmed, the procedure was initiated. An Olympus gastroscope was passed into the posterior oropharynx where an upper esophageal stenosis was identified. The scope was passed down to the distal esophagus. To address the upper esophageal stenosis, rigid dilator over guidewire was selected. Next using an Swazi rigid dilator, a guidewire was placed through the gastroscope. Next the scope was withdrawn. A 57-Armenian rigid Swazi dilator was passed carefully along the posterior oropharynx to 35 cm and left in place for 2-3 minutes stretch. The dilator was withdrawn including the guidewire. The scope was reentered along the posterior oropharynx with no findings of full- thickness tear of the upper esophageal sphincter. Additional findings below. Within the stomach and duodenum, cold forceps biopsies obtained. The large esophageal valve was evaluated with Hill grade 2 lower esophageal valve. LA grade B erosive esophagitis was identified. No full-thickness injury was encountered. The GI tract was desufflated. The patient tolerated the procedure well. FINDINGS: Upper esophageal stenosis dilated 57-Armenian rigid dilator Diaphragmatic hiatus at 40 cm from the incisors Squamocolumnar junction 40 cm from the incisors. Duodenum with mild duodenitis LA grade B erosive esophagitis Hill grade 2 lower esophageal valve. Cold forceps biopsies obtained of the antrum. RECOMMENDATIONS: Omeprazole 40 mg daily Upper endoscopy as needed
== END | disposition home or self-care (01) ==
LOC: ORWHC2ENDO 09:10
PROVIDERS: ATTEND Surgery Plastic and Reconstructive Surgery
DX: Z12.11 Encounter for screening for malignant neoplasm of colon (principal); D12.8 Benign neoplasm of rectum; K57.30 Diverticulosis of large intestine without perforation or abscess without bleeding; K64.1 Second degree hemorrhoids; I25.10 Atherosclerotic heart disease of native coronary artery without angina pectoris; K29.50 Unspecified chronic gastritis without bleeding; E78.5 Hyperlipidemia, unspecified; I10 Essential (primary) hypertension; E07.9 Disorder of thyroid, unspecified; Z86.718 Personal history of other venous thrombosis and embolism; Z90.49 Acquired absence of other specified parts of digestive tract; Z90.89 Acquired absence of other organs; Z98.890 Other specified postprocedural states; Z79.02 Long term (current) use of antithrombotics/antiplatelets; Z79.899 Other long term (current) drug therapy; Z79.84 Long term (current) use of oral hypoglycemic drugs; Z95.5 Presence of coronary angioplasty implant and graft
CPT/HCPCS: 45380; 43248; 88305; 43239; J2704; J2001; 43249; 45378; 45379

== ENCOUNTER 2024-02-12 10:19 | Emergency (ER) | payer MEDICARE, BC ==
[2024-02-12] MEDS: OXYMETAZOLINE 0.05% NASL SPRAY 1 SPRAY BOTTLE NASAL STA (10:38)
--- NOTE | 2024-02-12 11:01 | ED ---
ENT HPI - General Chief complaint: ENT Stated complaint: nose bleed on blood thinner Time Seen by Provider: 02/12/24 10:28 Source: patient, RN notes reviewed Mode of arrival: ambulatory Limitations: no limitations - History of Present Illness Initial comments: This is a 68-year-old male who presents to the emergency department for a nosebleed. States that it started this morning and has been occurring intermittently. This is only coming out of the left nostril. He is on Plavix. Denies any injuries or pain associated with this. He does report problems with sinusitis. MD complaint: epistaxis - Related Data Home Medications Medication Instructions Recorded Confirmed Clopidogrel [Plavix] 75 mg PO DAILY 06/07/14 08/31/22 Furosemide [Lasix] 40 mg PO TID 06/07/14 09/02/22 Potassium Chloride [Klor-Con 10] 20 meq PO BID 06/07/14 09/02/22 traMADol HCl [Ultram] 50 mg PO Q6H PRN 06/07/14 09/02/22 Metoprolol Succinate (ER) [Toprol 25 mg PO HS 06/10/15 09/02/22 XL] Atorvastatin Calcium [Lipitor] 20 mg PO HS 12/16/16 09/02/22 FLUoxetine HCL [PROzac] 20 mg PO HS 12/16/16 09/02/22 OXcarbazepine [Trileptal] 150 mg PO TID 01/27/19 09/02/22 Spironolactone 50 mg PO DAILY 01/27/19 09/02/22 Levothyroxine Sodium [Synthroid] 25 mcg PO DAILY 08/31/22 09/02/22 metFORMIN HCL 500 mg PO DAILY 08/31/22 09/02/22 Allergies Allergy/AdvReac Type Severity Reaction Status Date / Time No Known Allergies Allergy Verified 01/12/24 19:17 Review of Systems ROS Statement: Those systems with pertinent positive or pertinent negative responses have been documented in the HPI. ROS Other: All systems not noted in ROS Statement are negative. Past Medical History Past Medical History: Chest Pain / Angina, CVA/TIA, Hyperlipidemia, Hypertens ion, Thyroid Disorder Additional Past Medical History / Comment(s): CVA IN 2014: Right sided numbness. History of Any Multi-Drug Resistant Organisms: None Reported Past Surgical History: Cholecystectomy, Heart Catheterization With Stent, Orthopedic Surgery, Tonsillectomy Additional Past Surgical History / Comment(s): LT & Rt Rotator cuff surgery. NECK SURGERY. Pilonidal cyst removal. HEMORRHOIDECTOMY Past Anesthesia/Blood Transfusion Reactions: No Reported Reaction Date of Last Stent Placement:: November 2013 Past Psychological History: Depression Smoking Status: Never smoker - Past Family History Mother Family Medical History: Cancer Brother(s) Family Medical History: Cancer General Exam Limitations: no limitations General appearance: alert, in no apparent distress Head exam: Present: atraumatic, normocephalic, normal inspection ENT exam: Present: other (Dried blood in the left nare without active bleeding.) Respiratory exam: Present: normal lung sounds bilaterally. Absent: respiratory distress, wheezes, rales, rhonchi, stridor Cardiovascular Exam: Present: regular rate, normal rhythm, normal heart sounds. Absent: systolic murmur, diastolic murmur, rubs, gallop, clicks Neurological exam: Present: alert, oriented X3, CN II-XII intact Psychiatric exam: Present: normal affect, normal mood Skin exam: Present: warm, dry, intact, normal color. Absent: rash Course Vital Signs 02/12/24 02/12/24 10:25 11:48 Temperature 97.8 F Pulse Rate 72 82 Respiratory 20 18 Rate Blood Pressure 130/79 127/85 O2 Sat by Pulse 97 96 Oximetry Medical Decision Making - Medical Decision Making This is a 68-year-old male who presents to the emergency department for a nosebleed. Was pt. sent in by a medical professional or institution? @ -No Did you speak to anyone other than the patient for history? @ -No Did you review nursing and triage notes? @ -Yes, and I agree, it is accurate with regards to the patient's symptoms. Were old charts reviewed? @ -No Differential Diagnosis? @ -Differential Epistaxis: Nose bleed, injury, coagulopathy, allergic rhinitis, this is not meant to be an all-inclusive list. EKG interpreted by me (3pts min.)? @ -Not obtained X-rays interpreted by me (1pt min.)? @ -Not obtained CT interpreted by me (1pt min.)? @ -Not obtained U/S interpreted by me (1pt. min.)? @ -Not obtained What testing was considered but not performed? (CT, X-rays, U/S, labs)? Why? @ -None What meds were considered but not given? Why? @ -None Did you discuss the management of the patient with other professionals? @ -No Did you reconcile home meds? @ -No Was smoking cessation discussed for >3mins.? @ -No Was critical care preformed (if so, how long)? @ -No Were there social determinants of health that impacted care today? How? (Homelessness, low income, unemployed, alcoholism, drug addiction, transportation, low edu. Level, literacy, decrease access to med. care, residential, rehab)? @ -No Was there de-escalation of care discussed even if they declined? (Discuss DNR or withdrawal of care, Hospice)? @ -No What co-morbidities impacted this encounter? (DM, HTN, Smoking, COPD, CAD, Cancer, CVA, Hep., AIDS, mental health diagnosis, sleep apnea, morbid obesity)? @ -Hx of CVA Was patient admitted / discharged? @ -Discharged. Afrin nasal spray administered and his nose was clamped for approximately 20 minutes. Bleeding had resolved. He was monitored for another 30 minutes without return of bleeding. Advised the patient to use saline nasal spray several times daily to moisten the nasal passages and reduce the risk of recurrence. He was sent home with the Afrin nasal spray and advised to use this at home, followed by clamping of the nose if the bleeding returns. Patient discharged home in stable condition. Undiagnosed new problem with uncertain prognosis? @ -None Drug Therapy requiring intensive monitoring for toxicity (Heparin, Nitro, Insulin, Cardizem)? @ -None Were any procedures done? @ -None Diagnosis/symptom? @ -Epistaxis Acute, or Chronic, or Acute on Chronic? @ -Acute Uncomplicated (without systemic symptoms) or Complicated (systemic symptoms)? @ -Uncomplicated Side effects of treatment? @ -None Exacerbation, Progression, or Severe Exacerbation] @ -Not applicable Poses a threat to life or bodily function? @ -No Return precautions reviewed in depth, the patient is instructed to return to the emergency department with any new, worsening, or concerning symptoms. Patient v erbalized understanding. This case was discussed in detail with the attending ED physician, Dr. Bloom. Presentation, findings, and treatment plan discussed in detail as well. Disposition Clinical Impression: Epistaxis Disposition: HOME SELF-CARE Instructions (If sedation given, give patient instructions): Nosebleed (ED) Additional Instructions: Return to the emergency department with any new, worsening, or concerning symptoms. Start using saline nasal spray several times a day to help moisten the nasal passages and reduce the risk of recurrence. If you develop another nosebleed, use the Afrin nasal spray as 2 sprays in each nostril and then clamp the nose for 20 to 30 minutes. If the bleeding does not stop, you can repeat this process. Follow up with your primary care provider in 1-2 days. Is patient prescribed a controlled substance at d/c from ED?: No Referrals: Meka Angel, [Primary Care Provider] - 1-2 days
[2024-02-12 11:10] VITALS: TEMP 97.8
[2024-02-12 12:17] VITALS: BP 127/85; PULSE 82; RESP 18
== END 2024-02-12 11:51 | disposition home or self-care (01) ==
LOC: EC 10:19
DX: R04.0 Epistaxis (principal); Z79.02 Long term (current) use of antithrombotics/antiplatelets; Z86.73 Personal history of transient ischemic attack (TIA), and cerebral infarction without residual deficits
CPT/HCPCS: 99283

== ENCOUNTER → 2024-03-14 | Outpatient (CLI) | payer MEDICARE, BC ==
[2024-03-14 14:45] LABS: HCT 43.1 % (39.6-50.0); HGB 14.5 g/dL (13.0-17.0); MCH 28.7 pg (27.0-32.0); MCHC 33.6 g/dL (32.0-37.0); MCV 85.3 FL (80.0-97.0); Mean Platelet Volume 8.8 FL (9.5-12.2); NRBC Per 100 WBC 0 X 10*3/uL (0.00-0.01); Platelet Count 219 X 10*3/uL (140-440); RBC 5.05 X 10*6/uL (4.40-5.60); RDW 14.5 % (11.5-14.5); WBC 10.09 X 10*3/uL (4.50-10.00)
[2024-03-14 15:12] LABS: Blood Urea Nitrogen 15.3 mg/dL (9.0-27.0); Carbon Dioxide 26.1 mmol/L (21.6-31.8); Chloride 101 mmol/L (96-109); Potassium 3.5 mmol/L (3.5-5.5); Sodium 139 mmol/L (135-145)
== END | disposition home or self-care (01) ==
LOC: LABPAT 10:30
PROVIDERS: ATTEND Internal Medicine Interventional Cardiology
DX: Z01.812 Encounter for preprocedural laboratory examination (principal); I25.10 Atherosclerotic heart disease of native coronary artery without angina pectoris; R06.02 Shortness of breath
CPT/HCPCS: 80051; 82565; 84520; 85027

== ENCOUNTER 2024-03-22 07:13 | Day surgery (SDC) | payer MEDICARE, BC ==
[2024-03-20 15:33] VITALS: BMI 35.4
[~2024-03-22 07:13] MED LIST changes: +ALPRAZolam 0.25 MG TAB PO PRN; +ALPRAZolam 0.5 MG TAB PO PRN; -LACTATED RINGERS 1,000 ML IV SCH; -LIDOCAINE 2% INJ 20 MG/ML (2 ML VIAL) ONE; +NITROGLYCERIN SL TABS 0.4 MG TAB SUBLINGUAL PRN; -PROPOFOL 10 MG/ML 20 ML VIAL IV ONE
[2024-03-22] MEDS: SODIUM CHLORIDE 0.9% 1,000 ML IV ONE (07:40)
[2024-03-22 08:00] LABS: Glucose,Whole Blood 107 mg/dL (70-110)
[2024-03-22] MEDS: SODIUM CHLORIDE 0.9% 1,000 ML in EMPTY BAG 1 BAG IV SCH (08:12)
[2024-03-22] MEDS: CLOPIDOGREL 75 MG TAB ONE (08:13)
[2024-03-22] MEDS: ASPIRIN 325 MG TAB PO STA (08:13)
[2024-03-22 08:37] VITALS: RESP 16; TEMP 98.1
[2024-03-22] MEDS ORDERED: fentaNYL (PF) 50 MCG/ML 2 ML AMP ONE (09:15)
[2024-03-22] MEDS ORDERED: HEPARIN SODIUM 1,000 UN/ML (10ML VL) ONE (09:15)
[2024-03-22] MEDS ORDERED: VERAPAMIL 2.5 MG/ML 2 ML AMP ONE (09:15)
[2024-03-22] MEDS ORDERED: LIDOCAINE 1% INJ 10MG/ML (20 ML MDV) ONE (09:15)
[2024-03-22] MEDS: LIDOCAINE 2% (PF) 20 MG/ML 5 ML VIAL SQ ONE (09:37)
[2024-03-22] MEDS: fentaNYL (PF) 50 MCG/1 ML VIAL IVP ONE (09:40)
[2024-03-22] MEDS: MIDAZOLAM 2 MG/2 ML VIAL IVP ONE ×2 (09:40→09:43)
[2024-03-22] MEDS: HEPARIN SODIUM 1,000 UN/ML (10ML VL) IVP ONE (09:40)
[2024-03-22] MEDS ORDERED: RX INFO: IV CONTRAST WAS GIVEN 1 EACH MISC MISCELLANE PRN (09:52)
[2024-03-22] MEDS: IOPAMIDOL-370 100ML BTL INTRATHECA ONE (09:52)
--- NOTE | 2024-03-22 09:55 | P.PCN ---
Date of Procedure: 03/22/24 Operative Findings: CARDIAC CATHETERIZATION PERFORMING PHYSICIAN: Logan Fox MD, RPVI PROCEDURE PERFORMED: 1. Selective right and left coronary angiogram 2. Left heart catheterization 3. Ultrasound-guided access of the right radial artery INDICATION: Unstable angina COMPLICATION: None APPROACH: Right radial artery LEVEL OF SEDATION: Moderate with a sedation length of 14 minutes PROCEDURE DESCRIPTION: After obtaining an informed consent, the patient was brought to cardiac director of cath lab. Local anesthesia was performed using lidocaine subcutaneously. The right radial artery was cannulated using Seldinger technique, the guidewire passed easily, following that we advanced a 5-Indonesian sheath dilator assembly, the wire and dilator were removed and sheath was flushed. Following that, 2 mg of verapamil along with 5000 unit heparin were given. Selective right and left coronary angiogram using a 6-Indonesian JR4 and JL 3.5 catheters. The procedure was completed there was no complication. SELECTIVE CORONARY ANGIOGRAM: The right coronary artery: Large-caliber vessel and a dominant vessel and calcified vessel with mild to moderate diffuse disease with no high-grade stenosis and gives rise into a PLV branch which has intermediate to severe lesion in the proximal portion Left main: Has mild disease only. Bifurcates into LCx and LAD The left circumflex: Large-caliber vessel nondominant vessel and appears to have mild to moderate disease The left anterior descending artery: Large-caliber vessel with patent stent in the mid left anterior descending artery. Otherwise LAD has mild disease only CONCLUSION: 1. Calcified right and left coronary system with patent stent in the mid LAD 2. Intermediate to severe disease involving the PLV branch of the RCA which is about 2.25 mm diameter POSTPROCEDURE MANAGEMENT: Consider medical treatment
[2024-03-22] MEDS ORDERED: SODIUM CHLORIDE 0.9% 1,000 ML IV SCH (10:00)
[2024-03-22 17:56] VITALS: BP 107/65; PULSE 73
== END 2024-03-22 13:57 | disposition home or self-care (01) ==
LOC: CATHCVL 07:13
PROVIDERS: ATTEND Internal Medicine Interventional Cardiology
DX: I25.10 Atherosclerotic heart disease of native coronary artery without angina pectoris (principal); I10 Essential (primary) hypertension; E78.5 Hyperlipidemia, unspecified; E11.9 Type 2 diabetes mellitus without complications; Z82.49 Family history of ischemic heart disease and other diseases of the circulatory system; Z86.73 Personal history of transient ischemic attack (TIA), and cerebral infarction without residual deficits; I65.23 Occlusion and stenosis of bilateral carotid arteries; Z79.84 Long term (current) use of oral hypoglycemic drugs; Z79.899 Other long term (current) drug therapy; Z95.5 Presence of coronary angioplasty implant and graft
CPT/HCPCS: 93454; 76937; C1769; C1894; J2250; J1644; Q9967; J2001; J3010

== ENCOUNTER → 2024-04-04 | Outpatient (CLI) | payer MEDICARE, BC | END | disposition home or self-care (01) | LOC: LABWHC1 13:22 | PROVIDERS: ATTEND Urology | DX: R97.20 Elevated prostate specific antigen [PSA] (principal) | CPT/HCPCS: 36415; 84153 ==

== ENCOUNTER 2025-04-14 20:57 | Emergency (ER) | payer MEDICARE, BC ==
[2025-04-14 21:03] VITALS: RESP 18
--- NOTE | 2025-04-14 21:55 | US ---
EXAMINATION TYPE: US venous doppler duplex LE RT DATE OF EXAM: 04/14/2025 9:18 PM COMPARISON: NONE CLINICAL INDICATION: Male, 69 years old with history of swelling, recent plane ride; Recent travel. O n plavix. No redness. No hx DVT. Patient states tripping down stairs beginning of March and hurting c [place] muscle. Pain TECHNIQUE: The lower extremity deep venous system is examined utilizing real time linear array sonog mildred with graded compression, color doppler sonography, and spectral doppler. SIDE PERFORMED: Right FINDINGS: VESSELS IMAGED: Common Femoral Vein Deep Femoral Vein Greater Saphenous Vein * Femoral Vein Popliteal Vein Small Saphenous Vein * Proximal Calf Veins (* superficial vessels) Right Leg: Negative for DVT, Color Doppler imaging shows patency of the vessels. Spectral waveforms are within normal limits. IMPRESSION: 1. Right lower extremity ultrasound negative. [facility], , 04/14/2025 9:53 PM
--- NOTE | 2025-04-14 22:09 | ED ---
General Adult HPI - General Chief complaint: Extremity Injury, Lower Stated complaint: leg pain Time Seen by Provider: 04/14/25 21:04 Source: patient Mode of arrival: ambulatory Limitations: no limitations - History of Present Illness Initial comments: 69-year-old male presenting with chief complaint of right lower leg swelling. Patient reports that he does have history of edema and normally his right leg is a bit worse than the left. They were on a recent 4-hour flight on 03/30 and noticed the next day that the swelling started. He has been taking his Lasix as prescribed but feels that the swelling is not going down. He is having some pain in the right calf. He did have a prior injury to the right lower leg and was told by his PCP that he tore a muscle. He is having no chest pain or difficulty breathing. No cough congestion or sore throat. No dizziness or weakness. No numbness or tingling. No new injury or trauma - Related Data Home Medications Medication Instructions Recorded Confirmed Clopidogrel [Plavix] 75 mg PO DAILY 06/07/14 03/20/24 Furosemide [Lasix] 40 mg PO TID 06/07/14 03/20/24 Potassium Chloride [Klor-Con 10] 20 meq PO BID 06/07/14 03/20/24 traMADol HCl [Ultram] 50 mg PO Q6H PRN 06/07/14 03/22/24 Metoprolol Succinate (ER) [Toprol 25 mg PO HS 06/10/15 03/20/24 XL] Atorvastatin Calcium [Lipitor] 20 mg PO HS 12/16/16 03/20/24 FLUoxetine HCL [PROzac] 20 mg PO HS 12/16/16 03/20/24 OXcarbazepine [Trileptal] 150 mg PO TID 01/27/19 03/20/24 Spironolactone 50 mg PO DAILY 01/27/19 03/20/24 Levothyroxine Sodium [Synthroid] 25 mcg PO DAILY 08/31/22 03/20/24 Gabapentin [Neurontin] 300 mg PO TID 03/20/24 03/20/24 Allergies Allergy/AdvReac Type Severity Reaction Status Date / Time No Known Allergies Allergy Verified 04/14/25 20:59 Review of Systems ROS Statement: Those systems with pertinent positive or pertinent negative responses have been documented in the HPI. ROS Other: All systems not noted in ROS Statement are negative. Past Medical History Past Medical History: Chest Pain / Angina, CVA/TIA, Hyperlipidemia, Hypertension, Thyroid Disorder Additional Past Medical History / Comment(s): CVA [place] 2014: Right sided numbness. History of Any Multi-Drug Resistant Organisms: None Reported Past Surgical History: Cholecystectomy, Heart Catheterization With Stent, Orthopedic Surgery, Tonsillectomy Additional Past Surgical History / Comment(s): LT & Rt Rotator cuff surgery. NECK SURGERY. Pilonidal cyst removal. HEMORRHOIDECTOMY Past Anesthesia/Blood Transfusion Reactions: No Reported Reaction Date of Last Stent Placement:: November 2013 Past Psychological History: Depression Smoking Status: Never smoker Past Alcohol Use History: None Reported Past Drug Use History: None Reported - Past Family History Mother Family Medical History: Cancer Brother(s) Family Medical History: Cancer General Exam Limitations: no limitations General appearance: alert, in no apparent distress Head exam: Present: atraumatic, normocephalic, normal inspection Eye exam: Present: normal appearance, EOMI Neck exam: Present: normal inspection. Absent: meningismus Respiratory exam: Present: normal lung sounds bilaterally. Absent: respiratory distress, wheezes, rales, rhonchi, stridor Cardiovascular Exam: Present: regular rate, normal rhythm, normal heart sounds. Absent: systolic murmur, diastolic murmur, rubs, gallop, clicks Right Lower Leg exam: Present: full ROM, swelling. Absent: tenderness, Homans' sign Neurovascular tendon exam: Present: no vascular compromise Neurological exam: Present: alert, oriented X3 Psychiatric exam: Present: normal affect, normal mood Skin exam: Present: warm, dry, normal color Course Vital Signs 04/14/25 04/14/25 20:59 22:24 Temperature 97.5 F L 97.8 F Pulse Rate 62 71 Respiratory 18 18 Rate Blood Pressure 135/71 129/76 O2 Sat by Pulse 97 99 Oximetry Medical Decision Making - Medical Decision Making Was pt. sent in by a medical professional or institution (, PA, CNA CAREGIVER, urgent care, hospital, or half-way...) When possible be specific @ -No Did you speak to anyone other than the patient for history (EMS, parent, family, police, friend...)? What history was obtained from this source @ - Did you review nursing and triage notes (agree or disagree)? Why? @ -I reviewed and agree with nursing and triage notes Were old charts reviewed (outside hosp., previous admission, EMS record, old EKG, old radiological studies, urgent care reports/EKG's, half-way records)? Report findings @ -No old charts were reviewed Differential Diagnosis (chest pain, altered mental status, abdominal pain women, abdominal pain men, vaginal bleeding, weakness, fever, dyspnea, syncope, headache, dizziness, GI bleed, back pain, seizure, CVA, palpatations, mental health, musculoskeletal)? @ -Differential Musculoskeletal Muscular strain, contusion, ligament sprain, fracture, arthritis, septic arthritis, bursitis, cellulitis, muscle spasm, nerve compression, DVT, arterial occlusion, herpes zoster, electrolyte abnormality, tumor.... This is not meant to be in all inclusive list EKG interpreted by me (3pts min.). @ -As above X-rays interpreted by me (1pt min.). @ -None done CT interpreted by me (1pt min.). @ -None done U/S interpreted by me (1pt. min.). @ -Ultrasound is negative for DVT What testing was considered but not performed or refused? (CT, X-rays, U/S, labs)? Why? @ -None What meds were considered but not given or refused? Why? @ -None Did you discuss the management of the patient with other professionals (professionals i.e. , PA, CNA CAREGIVER, lab, RT, psych nurse, social sciences lecturer, chief architect, teacher, pharmaceutical officer, telehealth case manager)? Give summary @ -No Was smoking cessation discussed for >3mins.? @ -No Was critical care preformed (if so, how long)? @ -No Were there social determinants of health that impacted care today? How? (Homelessness, low income, unemployed, alcoholism, drug addiction, transportation, low edu. Level, literacy, decrease access to med. care, [facility], rehab)? @ -No Was there de-escalation of care discussed even if they declined (Discuss DNR or withdrawal of care, Hospice)? DNR status @ -No What co-morbidities impacted this encounter? (DM, HTN, Smoking, COPD, CAD, Cancer, CVA, ARF, Chemo, Hep., AIDS, mental health diagnosis, sleep apnea, morbid obesity)? @ -None Was patient admitted / discharged? Hospital course, mention meds given and route, prescriptions, significant lab abnormalities, going to OR and other pertinent info. @ -69-year-old male presenting with chief complaint of right lower leg swelling. He had a recent flight. No chest pain or difficulty breathing. History and physical examination are conducted. He is neurovascularly intact. Ultrasound negative for DVT. Patient does have history of edema and had a prior leg injury, this edema was probably exacerbated by his flight and also his recent injury. He is educated on today's findings and supportive management at home. Follow-up with PCP. Report back to ER with any new or worsening symptoms. Discussed return parameters and answered all questions. Patient conveyed verbal understanding and agreed to the plan. I discussed this case in detail with my attending Dr. Arias Undiagnosed new problem with uncertain prognosis? @ -No Drug Therapy requiring intensive monitoring for toxicity (Heparin, Nitro, Insulin, Cardizem)? @ -No Were any procedures done? @ -No Diagnosis/symptom? @ -Leg swelling Acute, or Chronic, or Acute on Chronic? @ -Acute Uncomplicated (without systemic symptoms) or Complicated (systemic symptoms)? @ -Uncomplicated Side effects of treatment? @ -No Exacerbation, Progression, or Severe Exacerbation? @ -No Poses a threat to life or bodily function? How? (Chest pain, USA, MS, pneumonia, PE, COPD, DKA, ARF, appy, cholecystitis, CVA, Diverticulitis, Homicidal, Suicidal, threat to staff... and all critical care pts) @ -Unlikely Disposition Clinical Impression: Edema Disposition: HOME SELF-CARE Condition: Good Instructions (If sedation given, give patient instructions): Leg Edema (ED) Additional Instructions: Follow-up with PCP. Report back to ER with any new or worsening symptoms. Elevate the leg and wear compression stockings. Is patient prescribed a controlled substance at d/c from ED?: No Referrals: Meka Angel DO [Primary Care Provider] - 1-2 days Time of Disposition: 22:09
[2025-04-14 22:26] VITALS: BP 129/76; PULSE 71; TEMP 97.8
== END 2025-04-14 22:26 | disposition home or self-care (01) ==
LOC: EC 20:57
DX: R60.0 Localized edema (principal)
CPT/HCPCS: 99283

== ENCOUNTER → 2025-06-21 | Outpatient (CLI) | payer MEDICARE, BC | END | disposition home or self-care (01) | LOC: LABWHC1 08:33 | DX: I63.9 Cerebral infarction, unspecified (principal) | CPT/HCPCS: 36415; 83921 ==